=== PATIENT | male | born 1980 | race Caucasian/White ===

== ENCOUNTER 2016-09-18 | Outpatient (CLI) | END 2016-09-18 04:59 | disposition EMS.NT ==

== ENCOUNTER 2017-03-03 10:50 | Outpatient (CLI) | payer OTHER | END 2017-03-03 10:51 | disposition home or self-care (01) | LOC: SC 10:50 | PROVIDERS: ATTEND Internal Medicine Pulmonary Disease | DX: G47.30 Sleep apnea, unspecified (principal); G47.8 Other sleep disorders; R06.83 Snoring; G47.10 Hypersomnia, unspecified | CPT/HCPCS: 99203; 99212 ==